=== PATIENT | female | born 1975 | race Caucasian/White ===

== ENCOUNTER 2019-03-01 23:51 | Emergency (ER) | payer MEDICAID ==
[~2019-03-01] VITALS: Ht 162.6 cm; Wt 112.9 kg
[2019-03-01 23:56] VITALS: Ht 162.6 cm; Wt 112.9 kg
[2019-03-02 00:26] LABS: BASOPHIL % 0.7 % (0-2); PLATELET COUNT 267 x10^3mcL (130-400)
[2019-03-02 00:27] LABS: RED CELL DISTRIBUTION WIDTH 16.6 % (11.5-14.5)
[2019-03-02 00:41] LABS: ALBUMIN 3.5 g/dL (3.4-5.0); ALKALINE PHOSPHATASE 123 U/L (46-116); ALT/SGPT 30 U/L (14-59); AST/SGOT 3 U/L (15-37); BILIRUBIN TOTAL 0.3 mg/dL (0.20-1.00); CHLORIDE SERUM 97 mmol/L (98-107); GFR1 > 60 mL/min; SODIUM SERUM 136 mmol/L (136-145); TOTAL PROTEIN, SERUM 7.4 g/dL (6.4-8.2)
[2019-03-02 00:43] LABS: GLUCOSE SERUM 491 mg/dL (74-106)
[2019-03-02] MEDS ORDERED: GLIPIZIDE10 M3 PO (01:07)
[2019-03-02] MEDS ORDERED: HUMI SC (01:08)
[2019-03-02] MEDS ORDERED: LANTUS SOLOS100 U/M1 SC (01:09)
[2019-03-02 01:52] LABS: UA SPECIFIC GRAVITY <=1.005 (1.005-1.035); microscopic required? YES; urine erythrocyte TRACE (NEGATIVE)
[2019-03-02 04:10] VITALS: BP 121/49
== END 2019-03-02 04:10 | disposition home or self-care (01) ==
LOC: ED 23:51
PROVIDERS: Emergency Medicine
DX: E11.65 Type 2 diabetes mellitus with hyperglycemia (principal); Z90.49 Acquired absence of other specified parts of digestive tract; Z98.890 Other specified postprocedural states; Z76.0 Encounter for issue of repeat prescription
CPT/HCPCS: 82962; J1815; J1885; J2405; J7030

== ENCOUNTER 2019-06-16 08:31 | Emergency (ER) | payer MEDICAID ==
[~2019-06-16] VITALS: Ht 157.5 cm; Wt 101.6 kg
[~2019-06-16 08:31] MED LIST: GLIPIZIDE10 M3 PO; HUMI SC; LANTUS SOLOS100 U/M1 SC
[2019-06-16 08:40] VITALS: Ht 157.5 cm; Wt 101.6 kg
[2019-06-16 10:13] LABS: CALCIUM 8.5 mg/dL (8.5-10.1); CARBON DIOXIDE 25.2 mmol/L (21-32); CHLORIDE SERUM 104 mmol/L (98-107); CREATININE SERUM 0.8 mg/dL (0.6-1.0); GFR1 > 60 mL/min; GLUCOSE SERUM 326 mg/dL (74-106); POTASSIUM SERUM 3.6 mmol/L (3.5-5.1); SODIUM SERUM 139 mmol/L (136-145)
[2019-06-16 10:26] LABS: ALBUMIN 3.3 g/dL (3.4-5.0); ALKALINE PHOSPHATASE 107 U/L (46-116); ALT/SGPT 22 U/L (14-59); AST/SGOT 13 U/L (15-37); BILIRUBIN TOTAL 0.3 mg/dL (0.20-1.00); CHOLESTEROL 188 mg/dL (<200); HDL CHOLESTEROL 31 mg/dL (40-60); LIPASE 238 IU/L (73-393); T4(THYROXINE) 9.3 ug/dL (4.7-13.3); TOTAL PROTEIN, SERUM 6.8 g/dL (6.4-8.2)
[2019-06-16 11:12] LABS: AMPHETAMINE QUAL UR NONE DETECTED (See below)
[2019-06-16 13:23] LABS: PLATELET COUNT 133 x10^3mcL (130-400); RED CELL DISTRIBUTION WIDTH 16.4 % (11.5-14.5)
[2019-06-16 13:30] LABS: microscopic required? YES; urine erythrocyte 3+ (NEGATIVE)
[2019-06-16 13:51] VITALS: BP 131/70
== END 2019-06-16 13:51 | disposition home or self-care (01) ==
LOC: ED 08:31
PROVIDERS: Emergency Medicine
DX: E11.65 Type 2 diabetes mellitus with hyperglycemia (principal); E78.00 Pure hypercholesterolemia, unspecified; F31.9 Bipolar disorder, unspecified; E66.01 Morbid (severe) obesity due to excess calories; Z68.41 Body mass index [BMI] 40.0-44.9, adult
CPT/HCPCS: 36600; 82962; J1815; J2405; J7030

== ENCOUNTER 2019-07-31 07:33 | Emergency (ER) | payer MEDICAID ==
[~2019-07-31] VITALS: Ht 157.5 cm; Wt 96.2 kg
[2019-07-31 07:45] VITALS: Ht 157.5 cm; Wt 96.2 kg
[2019-07-31 08:47] LABS: BASOPHIL % 0.4 % (0-2); PLATELET COUNT 193 x10^3mcL (130-400)
[2019-07-31 08:48] LABS: microscopic required? NO
[2019-07-31 08:54] LABS: urine erythrocyte NEGATIVE (NEGATIVE)
[2019-07-31 09:18] LABS: ALKALINE PHOSPHATASE 99 U/L (46-116); ALT/SGPT 24 U/L (14-59); AMYLASE 38 U/L (25-115); AST/SGOT 9 U/L (15-37); BILIRUBIN TOTAL 0.3 mg/dL (0.20-1.00); CARBON DIOXIDE 24.5 mmol/L (21-32); CHLORIDE SERUM 99 mmol/L (98-107); CREATININE SERUM 0.8 mg/dL (0.6-1.0); GFR1 > 60 mL/min; LIPASE 268 IU/L (73-393); POTASSIUM SERUM 3.9 mmol/L (3.5-5.1); SODIUM SERUM 131 mmol/L (136-145); TOTAL PROTEIN, SERUM 6.4 g/dL (6.4-8.2)
[2019-07-31 09:19] LABS: ALBUMIN 3.2 g/dL (3.4-5.0)
[2019-07-31 09:21] LABS: GLUCOSE SERUM 477 mg/dL (74-106)
[2019-07-31 12:06] VITALS: BP 112/58
== END 2019-07-31 12:20 | disposition home or self-care (01) ==
LOC: ED 07:33
PROVIDERS: Emergency Medicine
DX: E86.0 Dehydration (principal); E11.65 Type 2 diabetes mellitus with hyperglycemia
CPT/HCPCS: 82962; J1815; J7030; Q0092

== ENCOUNTER 2020-02-09 21:23 | Emergency (ER) | payer OTHER ==
[~2020-02-09] VITALS: Ht 157.5 cm; Wt 102.1 kg
[~2020-02-09 21:23] MED LIST changes: +DEP250 PO; +FLA500 PO; +MIRUD PO; +TRA50 PO
[2020-02-09 21:37] VITALS: Ht 157.5 cm; Wt 102.1 kg
[2020-02-10 00:04] LABS: CALCIUM 9.1 mg/dL (8.5-10.1); CARBON DIOXIDE 25.4 mmol/L (21-32); CHLORIDE SERUM 95 mmol/L (98-107); CREATININE SERUM 0.8 mg/dL (0.6-1.0); GFR1 > 60 mL/min; GLUCOSE SERUM 407 mg/dL (74-106); POTASSIUM SERUM 3.8 mmol/L (3.5-5.1); SODIUM SERUM 131 mmol/L (136-145)
[2020-02-10 00:07] LABS: BASOPHIL % 0.5 % (0-2); PLATELET COUNT 203 x10^3mcL (130-400); RED CELL DISTRIBUTION WIDTH 13.4 % (11.5-14.5)
[2020-02-10 00:08] LABS: ALBUMIN 3.6 g/dL (3.4-5.0); ALKALINE PHOSPHATASE 91 U/L (46-116); ALT/SGPT 31 U/L (14-59); AST/SGOT 13 U/L (15-37); BILIRUBIN TOTAL 0.4 mg/dL (0.20-1.00)
[2020-02-10 02:11] VITALS: BP 129/78
== END 2020-02-10 02:11 | disposition home or self-care (01) ==
LOC: ED 21:23
PROVIDERS: Emergency Medicine
DX: E11.65 Type 2 diabetes mellitus with hyperglycemia (principal); R53.81 Other malaise; R43.2 Parageusia; Z20.828 Contact with and (suspected) exposure to other viral communicable diseases; Z90.49 Acquired absence of other specified parts of digestive tract; Z98.890 Other specified postprocedural states
CPT/HCPCS: 82962; J7030; Q0092; U0003-CS